=== PATIENT | female | born 1940 | race Caucasian/White ===

== ENCOUNTER 2016-09-03 18:14 | Inpatient (IN) | payer MEDICARE ==
[~2016-09-03] VITALS: Ht 160 cm; Wt 44.9 kg
[2016-09-03 18:47] LABS: HEMOGLOBIN 14.3 gm/dl (12.3-15.3); RED BLOOD COUNT 4.53 M/UL (4.00-5.10); WHITE BLOOD COUNT 13.8 K/UL (4.5-11.0)
[2016-09-03 19:08] LABS: BUN/CREATININE RATIO 28 (0-10)
[2016-09-04] MEDS ORDERED: ADVAIR 500-501 EACH INH (03:24)
[2016-09-04] MEDS ORDERED: SINGULAIR10 MG PO (03:25)
[2016-09-04] MEDS ORDERED: ACTONEL150 MG PO (03:27)
[2016-09-04] MEDS ORDERED: FLONASE ALLER15.8 ML (03:28)
[2016-09-04] MEDS ORDERED: VITAMIN D2000 UNI1 PO (03:29)
[2016-09-04] MEDS ORDERED: MAGNESIUM250 MG PO (03:29)
[2016-09-04] MEDS ORDERED: CENTRUM SILVER1 EAC1 PO (03:30)
[2016-09-05 05:34] LABS: HEMOGLOBIN 11.9 gm/dl (12.3-15.3); RED BLOOD COUNT 3.8 M/UL (4.00-5.10); WHITE BLOOD COUNT 9.8 K/UL (4.5-11.0)
[2016-09-05 05:55] LABS: BUN/CREATININE RATIO 34 (0-10)
[2016-09-06 05:10] LABS: HEMOGLOBIN 10.7 gm/dl (12.3-15.3); RED BLOOD COUNT 3.42 M/UL (4.00-5.10); WHITE BLOOD COUNT 8.7 K/UL (4.5-11.0)
[2016-09-06 05:33] LABS: BUN/CREATININE RATIO 27 (0-10)
[2016-09-07 04:40] LABS: HEMOGLOBIN 10.7 gm/dl (12.3-15.3); RED BLOOD COUNT 3.45 M/UL (4.00-5.10); WHITE BLOOD COUNT 8.2 K/UL (4.5-11.0)
[2016-09-07 05:09] LABS: BUN/CREATININE RATIO 17 (0-10)
[2016-09-08 04:38] LABS: HEMOGLOBIN 10.3 gm/dl (12.3-15.3); RED BLOOD COUNT 3.37 M/UL (4.00-5.10); WHITE BLOOD COUNT 8.8 K/UL (4.5-11.0)
[2016-09-08 05:04] LABS: BUN/CREATININE RATIO 20 (0-10)
[2016-09-09 06:30] LABS: HEMOGLOBIN 10.8 gm/dl (12.3-15.3); RED BLOOD COUNT 3.39 M/UL (4.00-5.10); WHITE BLOOD COUNT 9.8 K/UL (4.5-11.0)
[2016-09-09 06:46] LABS: BUN/CREATININE RATIO 20 (0-10)
[2016-09-10 07:42] LABS: HEMOGLOBIN 11.4 gm/dl (12.3-15.3); RED BLOOD COUNT 3.67 M/UL (4.00-5.10)
[2016-09-10 07:45] LABS: WHITE BLOOD COUNT 13.6 K/UL (4.5-11.0)
[2016-09-10 07:49] LABS: BUN/CREATININE RATIO 20 (0-10)
[2016-09-11 04:39] LABS: HEMOGLOBIN 9.8 gm/dl (12.3-15.3); WHITE BLOOD COUNT 10.1 K/UL (4.5-11.0)
[2016-09-11 04:40] LABS: RED BLOOD COUNT 3.2 M/UL (4.00-5.10)
[2016-09-11 04:58] LABS: BUN/CREATININE RATIO 17 (0-10)
[2016-09-12 07:10] LABS: HEMOGLOBIN 10.6 gm/dl (12.3-15.3); RED BLOOD COUNT 3.41 M/UL (4.00-5.10); WHITE BLOOD COUNT 8.3 K/UL (4.5-11.0)
[2016-09-13 06:10] LABS: HEMOGLOBIN 10.2 gm/dl (12.3-15.3); RED BLOOD COUNT 3.35 M/UL (4.00-5.10); WHITE BLOOD COUNT 7.8 K/UL (4.5-11.0)
[2016-09-13 06:28] LABS: BUN/CREATININE RATIO 10 (0-10)
[2016-09-14 05:23] LABS: HEMOGLOBIN 10.4 gm/dl (12.3-15.3); RED BLOOD COUNT 3.36 M/UL (4.00-5.10); WHITE BLOOD COUNT 10.8 K/UL (4.5-11.0)
[2016-09-14 05:34] LABS: BUN/CREATININE RATIO 12 (0-10)
[2016-09-17 04:46] LABS: HEMOGLOBIN 10.4 gm/dl (12.3-15.3); RED BLOOD COUNT 3.4 M/UL (4.00-5.10); WHITE BLOOD COUNT 9.7 K/UL (4.5-11.0)
[2016-09-17 05:00] LABS: BUN/CREATININE RATIO 25 (0-10)
== END 2016-09-17 13:12 | DRG 329 ==
LOC: ER1 18:14 → ZEROF 23:50 → MED SURG 4 23:50
PROVIDERS: Emergency Medicine; Family Medicine; Surgery; ADMIT Internal Medicine
PROC: 0W9G0ZZ Drainage of Peritoneal Cavity, Open Approach (ICD-10-PCS; 2016-09-04)
PROC: 0DBB0ZZ Excision of Ileum, Open Approach (ICD-10-PCS; principal; 2016-09-04 15:15)
DX: K56.60 Unspecified intestinal obstruction (principal); J18.9 Pneumonia, unspecified organism; J90 Pleural effusion, not elsewhere classified; Z68.1 Body mass index [BMI] 19.9 or less, adult; D62 Acute posthemorrhagic anemia; R18.8 Other ascites; J98.11 Atelectasis; T81.31XA Disruption of external operation (surgical) wound, not elsewhere classified, initial encounter; Y83.8 Other surgical procedures as the cause of abnormal reaction of the patient, or of later complication, without mention of misadventure at the time of the procedure; R63.6 Underweight; K74.60 Unspecified cirrhosis of liver; E87.6 Hypokalemia; J44.9 Chronic obstructive pulmonary disease, unspecified; R19.7 Diarrhea, unspecified; K57.30 Diverticulosis of large intestine without perforation or abscess without bleeding; G47.00 Insomnia, unspecified; F41.9 Anxiety disorder, unspecified; Z87.891 Personal history of nicotine dependence; Z86.010 Personal history of colon polyps; Z79.899 Other long term (current) drug therapy; Z90.710 Acquired absence of both cervix and uterus; Z98.890 Other specified postprocedural states; Z82.49 Family history of ischemic heart disease and other diseases of the circulatory system; Z82.0 Family history of epilepsy and other diseases of the nervous system
CPT/HCPCS: ECHO; 36415; 71010; 71020; 71250; 74000; 74250; 80048; 80053; 81001; 82140; 82550; 82553; 83605; 83690; 83874; 84132; 84484; 85025; 85027; 87086; 93005; 93306; 94640; 94664; 96361; 96365; 96375; 96376; 99285; C9113; J0690; J1335; J1650; J1940; J1956; J2270; J2405; J2710; J2795; J3010; J7030; J7050; J7120; Q9963